=== PATIENT | male | born 1980 | race Caucasian/White ===

== ENCOUNTER 2016-09-21 15:00 | Inpatient (IN) | payer OTHER ==
--- NOTE | ~2016-09-21 | PN ---
Unit #: [id number] #: [id number] Patient: RUBY SEVILLA [id number] [facility] [address] [place] [address] [id number] I MR#: [id number] NAME: RUBY SEVILLA ROOM: P185 Age: 36 Sex: M Admission Date: 09/21/2016 : 1980 Attending Physician: Bartolo Perez M.D. Admitting Physician: Bartolo Perez M.D. Primary Care Physician: Primary Care Physician Aida GUSTAFSON PROGRESS NOTES DATE September 22, 2016 DISCUSSION Mr. Sevilla is a 36-year-old white male, with mood disorder and substance abuse, who was seen today and chart was reviewed and the case was discussed with the staff. He has been anxious, withdrawn, and rather seclusive to himself. Meanwhile, he has been cooperative with the treatment recommendations and he has been taking the medications and tolerating them fairly well with no reported side effects. MENTAL STATUS EXAMINATION Young white male, who was casually dressed with fair personal hygiene and appears to be in no acute distress or discomfort. He was awake and alert on interaction with intact orientation. His mood is anxious with a congruent affect. His speech is slow and goal-directed. He denies any suicidal or homicidal ideations, and also denies any auditory or visual hallucinations. His insight and judgment remain slightly impaired. TREATMENT PLAN 1. We will continue him on his current medications and treatment protocol, and will monitor his response to the medications, and make further adjustments as needed. 2. We will continue to followup. Dictated by... Dariela Duvall/chiqui TD: 09/22/2016 11:46 JOB #: [id number] Unit #: [id number] #: [id number] Patient: RUBY SEVILLA PROGRESS NOTES Page 1 of 1 X Bartolo Perez MD PROGRESS NOTE
--- NOTE | ~2016-09-21 | PN ---
Unit #: [id number] #: [id number] Patient: RUBY SEVILLA [id number] [facility] [address] [place] [address] [id number] I MR#: [id number] NAME: RUBY SEVILLA ROOM: P186 Age: 36 Sex: M Admission Date: 09/21/2016 : 1980 Attending Physician: Bartolo Perez M.D. Admitting Physician: Bartolo Perez M.D. Primary Care Physician: Primary Care Physician Aida GUSTAFSON PROGRESS NOTES DATE 09/23/2016 DISCUSSION Mr. Sevilla is a 36-year-old white male with substance abuse and mood disorder who was seen today and chart was reviewed and case was discussed with the staff. He seemed to be seclusive to himself and anxious and withdrawn. Meanwhile, he has been cooperative with treatment recommendations and has been taking medications and tolerating them fairly well with no reported side effects. MENTAL STATUS EXAMINATION Young white male who was casually dressed with fair personal hygiene and appears to be in no acute distress or discomfort. He was awake and alert on interaction with intact orientation. His mood was anxious with congruent affect. He reports having suicidal ideations but denies any homicidal ideation. His insight and judgement remains slightly impaired. TREATMENT PLAN 1. Will continue his current medications and treatment protocol. Will monitor his response to the medications and make further adjustments as needed. 2. Will continue to follow up. Dictated by... Dariela Duvall/stephon TD: 09/23/2016 15:48 JOB #: [id number] Unit #: [id number] #: [id number] Patient: RUBY SEVILLA PROGRESS NOTES Page 1 of 1 X Bartolo Perez MD X PROGRESS NOTE
--- NOTE | ~2016-09-21 | HP ---
Unit #: [id number] #: [id number] Patient: HORACIO SEVILLA [id number] [place] [address] [id number] I MR#: [id number] NAME: HORACIO SEVILLA ROOM: P186 Age: 36 Sex: M Admission Date: 09/21/2016 : 1980 Attending Physician: Bartolo Perez M.D. Admitting Physician: Bartolo Perez M.D. Primary Care Physician: Primary Care Physician No HISTORY AND PHYSICAL HISTORY OF PRESENT ILLNESS Horacio is a 36 year old admitted to [facility] because of his abuse of alcohol. He is detoxing. PAST MEDICAL HISTORY 1. Long history of alcohol abuse. 2. 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 PAST SURGICAL HISTORY Nothing reported. ALLERGIES Penicillin. SOCIAL HISTORY Smokes 1 pack per day. Denies alcohol. Admits to a history of poly-illicit substance abuse. FAMILY HISTORY Medically noncontributory. REVIEW OF SYSTEMS CONSTITUTIONAL: No fever or chills. HEENT: Denies any sore throat, ear pain or runny nose. CARDIOVASCULAR: Denies chest pain, irregular heart rhythm or palpitations. CHEST: Denies shortness of breath or cough. No hemoptysis. GASTROINTESTINAL: Denies nausea, vomiting, diarrhea or chronic constipation. ENDOCRINE: Denies history of increased thirst or urination. No recent significant weight loss or gain. GENITOURINARY: Denies dysuria, frequency, or hematuria. SKIN: Denies any rashes. HEMATOLOGIC: Denies history of increased bleeding or bruising. MUSCULOSKELETAL: Denies any hot, swollen joints. No generalized muscle pain. NEUROLOGIC: Denies problems with vision or speech. No frequent, severe headaches. No numbness, tingling or weakness in any extremities. Denies loss of bladder or bowel control. CURRENT MEDICATIONS Detox protocol. Unit #: [id number] #: [id number] Patient: HORACIO SEVILLA PHYSICAL EXAMINATION GENERAL: Alert, well-nourished, in no apparent distress. VITAL SIGNS: Blood pressure 120/70, heart rate 70, respirations 16, temperature 98.6. WEIGHT: 220. HEIGHT: 6 feet 0 inches. SKIN: Warm and dry without rash or lesion. HEENT: Normocephalic. TMs not viewed. Oral and nasal passages clear. Conjunctivae clear. PERRLA. EOMs intact. NECK: Supple without lymphadenopathy or thyromegaly. HEART: Regular rate and rhythm without murmur. LUNGS: Clear. ABDOMEN: Soft, nontender. : Not done. EXTREMITIES: No evidence of cyanosis, clubbing or edema. Moves all without focal deficit. NEUROLOGICAL: Grossly within normal limits. Cranial Nerves: II: Visual santoro are intact. III, IV AND : Extraocular movements are intact. Pupils are equal, round and reactive to light. V: Facial sensation is grossly normal. VII: Facial movements and expression are normal. VIII: Auditory acuity grossly intact. IX, X: Uvula is midline. Phonation is normal. XI: Patient shrugs shoulders and turns head normally. XII: Tongue protrudes in the midline. Sensory and Motor Function: Sensory and motor sensation is grossly normal. Motor: moves all extremities well. Coordination: Gait is normal. Deep Tendon Reflexes: Intact. IMPRESSION Psychiatric admission. RECOMMENDATIONS PSYCHIATRIC: Per psychiatrist. MEDICAL: See no contraindications to participate in facility's activities. MEDICAL PROGNOSIS Good. MEDICAL CONDITION Stable. Dictated by... Juan FrazierAPhoenix. for Dariela Ragland/stephon TD: 09/22/2016 16:20 JOB #: [id number] Unit #: [id number] #: [id number] Patient: HORACIO SEVILLA HISTORY AND PHYSICAL Page 1 of 1 X Marce Allan HISTORY AND PHYSICAL
--- NOTE | ~2016-09-21 | PA ---
Unit #: [id number] #: [id number] [facility]AREKH [id number] [facility] [place] [address] [id number] I MR#: [id number] NAME: RUBY PAREKH ROOM: P185 Age: 36 Sex: M Admission Date: 09/21/2016 : 1980 Date of Assessment: 09/21/2016 Attending Physician: Bartolo Perez M.D. Admitting Physician: Bartolo Perez M.D. Primary Care Physician: Primary Care Physician No PSYCHIATRIC ASSESSMENT DATE OF SERVICE 09/21/2016. IDENTIFYING DATA Mr. Parekh is a 36-year-old single white male, who is a resident of [place], [place] and was referred to us from [facility] on a voluntary basis. CHIEF COMPLAINT "I relapsed 2 weeks ago and I have been drinking a fifth of whiskey a day." HISTORY OF PRESENT ILLNESS Mr. Parekh is a 36-year-old white male with long history of alcohol dependence, who came to the emergency room with a blood alcohol level of 0.08 and a CIWA score of 11, reporting that he was sober for 8 months, but then he ended up relapsing couple of weeks ago and has been drinking a fifth of whiskey a day and has been having suicidal thoughts today with a plan to hang himself and does report increasing depression, anxiety, irritability, restlessness, feelings of hopelessness and helplessness, and suicidal ideations with intent and plan. He reports that he feels depressed for the past couple of months with an increase in the past month and reports suicidal ideations and feelings of hopelessness and helplessness, and that he has attempted suicide in the past by attempting to hang himself and as such, was seen to be a significant threat to himself and therefore, recommendation for inpatient level of care for safety and stabilization was made and the patient was transferred to us. SUBSTANCE ABUSE HISTORY The patient reports extensive history of substance abuse including alcohol, cocaine, acid, opioids, and amphetamines, however, currently he reports alcohol to be his drug of choice and has been drinking a fifth of whiskey on daily basis plus some beers. PAST PSYCHIATRIC HISTORY The patient has a [facility]. Review of the medical records indicate that currently he is not active in any treatment program, is not seeing a psychiatrist, and is not taking any psychotropic medications. PAST MEDICAL HISTORY No acute or chronic medical illnesses. ALLERGIES Unit #: [id number] #: [id number] Patient: RUBY PAREKH. PERSONAL AND SOCIAL HISTORY A 36-year-old white male, who reports that he is single, unemployed, and essentially homeless and has poor social support system. MENTAL STATUS EXAMINATION Young white male, who was casually dressed with fair personal hygiene, appears to be in no acute distress or discomfort. He was awake and alert on interaction with intact orientation to time, place, and person. His mood was anxious with congruent affect. His speech was slow and goal directed. He reports having suicidal ideations, but denies any homicidal ideations, and also denies any auditory or visual hallucinations. His insight and judgment remain significantly impaired. DIAGNOSTIC IMPRESSION Psychiatric: Major depressive disorder, recurrent, moderate, without psychotic features; alcohol dependence, moderate, and acute withdrawals. Medical: None. Stressors: Mild psychosocial stressors. TREATMENT PLAN 1. The patient has presented with history of substance abuse and mood disorder, and has been decompensating and will need inpatient hospitalization for detoxification, safety, and stabilization. We will start him on detox protocol. We will closely monitor for any worsening withdrawal symptoms. 2. Supportive therapy was provided to the patient. 3. Safe, structured, and nourishing environment will be reported. ESTIMATED LENGTH OF STAY 5 to 7 days. ABILITY TO HELP SELF Limited. WILLINGNESS TO HELP SELF The patient appears to be willing to help self. STRENGTHS 1. Communicative. 2. Cooperative. PROBLEMS 1. Chronic dysphoric symptoms. 2. Poor social support system. DISCHARGE CRITERIA This will be contingent upon the patient's ability to show resolution of his depression and anxiety and his ability to stay safe and sober, particularly after discharge from the hospital. Dictated by... Dariela Duvall/alison Unit #: [id number] #: [id number] Patient: RUBY PAREKH TD: 09/22/2016 06:45 JOB #: [id number] PSYCHIATRIC ASSESSMENT Page 1 of 1 X Bartolo Perez MD PSYCHIATRIC ASSESSMENT
--- NOTE | ~2016-09-21 | DS ---
Unit #: [id number] #: [id number] [facility]: [facility] [id number] [facility] [address] [place] [address] [id number] I MR#: [id number] NAME: RUBY SEVILLA ROOM: [facility] Age: 36 Sex: M Admission Date: 09/21/2016 : 1980 Discharge Date: 09/26/2016 Attending Physician: Bartolo Perez M.D. Primary Care Physician: Primary Care Physician No DISCHARGE SUMMARY IDENTIFYING DATA Mr. Sevilla is a 36-year-old single white male who is a resident of [place], [place] and was referred to us from [facility] on a voluntary basis. DISCHARGE DIAGNOSES Psychiatric: Major depressive disorder, recurrent, moderate, without psychotic features; alcohol dependence, moderate and acute withdrawals. Medical: None. Stressors: Moderate psychosocial stressors. HISTORY OF PRESENT ILLNESS Please see initial psychiatric evaluation for details. PAST PSYCHIATRIC HISTORY Please see initial psychiatric evaluation for details. PAST MEDICAL HISTORY Please see initial psychiatric evaluation for details. HOSPITAL COURSE The patient was admitted to the adult chemical dependency unit at [facility] and was oriented to the hospital environment. Routine p.r.n. medications were initiated, and he was started back on his home medications and medications were adjusted and he was closely monitored. He was taking the medications regularly and was tolerating them fairly well and was able to come out of the detox without any complications and was willing to continue treatment on an outpatient basis and was denying any suicidal or homicidal ideations and was not seen to be a danger to self or anyone else and was not meeting criteria for further inpatient psychiatric treatment, and as such, it was decided that he will be discharged home and will continue treatment on an outpatient basis. DISCHARGE MEDICATIONS None. DISCHARGE CONDITION Stable. PROGNOSIS Fair. Dictated by... Unit #: [id number] #: [id number] Patient: RUBY SEVILLA Dariela Duvall/alison TD: 09/26/2016 22:44 JOB #: [id number] DISCHARGE SUMMARY Page 1 of 1 X Bartolo Perez MD X DISCHARGE SUMMARY
--- NOTE | ~2016-09-21 | PN ---
Unit #: [id number] #: [id number] Patient: RUBY SEVILLA [id number] [facility] [address] [place] [address] [id number] I MR#: [id number] NAME: RUBY SEVILLA ROOM: P186 Age: 36 Sex: M Admission Date: 09/21/2016 : 1980 Attending Physician: Bartolo Perez M.D. Admitting Physician: Bartolo Perez M.D. Primary Care Physician: Primary Care Physician Aida LYMAN NOTES DATE OF SERVICE: 09/25/2016 SUBJECTIVE Mr. Sevilla is a 36-year-old white male, who was seen today and chart was reviewed and case was discussed with the staff. He has been anxious, withdrawn, rather seclusive to himself. Meanwhile, he has been cooperative with treatment recommendations and has been taking medications and tolerating them fairly well with no reported side effects. MENTAL STATUS EXAMINATION Young white male who was casually dressed with fair personal hygiene, appears to be in no acute distress or discomfort. He was awake and alert on interaction with intact orientation. His mood was anxious with a congruent affect. He denies any suicidal or homicidal ideations. His insight and judgment remain slightly impaired. TREATMENT PLAN We will continue on his current treatment protocol. We will monitor his response and make further adjustments as needed. Dictated by... Dariela Duvall/alison TD: 09/27/2016 01:37 JOB #: [id number] [facility] PROGRESS NOTES Page 1 of 1 X Bartolo Perez MD PROGRESS NOTE
--- NOTE | ~2016-09-21 | PN ---
Unit #: [id number] #: [id number] Patient: RUBY PAREKH [id number] [facility] [address] [place] [address] [id number] I MR#: [id number] NAME: RUBY PAREKH ROOM: [facility] Age: 36 Sex: M Admission Date: 09/21/2016 : 1980 Attending Physician: Bartolo Perez M.D. Admitting Physician: Bartolo Perez M.D. Primary Care Physician: Primary Care Physician Aida LYMAN NOTES DATE OF SERVICE 09/24/2016 DISCUSSION Mr. Parekh is a 36-year-old white male who was seen today. Chart was reviewed and case was discussed with the staff. Her has been anxious, withdrawn, and seclusive to himself, and appears to be in some distress and discomfort. Meanwhile, he has been cooperative with his treatment recommendations and has been taking the medications and tolerating them fairly well with no reported side effects. MENTAL STATUS EXAMINATION Young white male who is casually dressed with fair personal hygiene, appears to be in no acute distress or discomfort. The patient was awake and alert on interaction with intact orientation. His mood is anxious with congruent affect. He denies any suicidal or homicidal ideations. His insight and judgment remain slightly impaired. TREATMENT PLAN 1. We will continue him on his current medications and treatment protocol. We will monitor his response to the medications and make further adjustments as needed. 2. We will continue to follow up. Dictated by... Bartolo Perez M.D. IAA/jimmyg TD: 09/24/2016 13:40 JOB #: [id number] Unit #: [id number] #: [id number] Patient: RUBY PAREKH PROGRESS NOTES Page 1 of 1 X Bartolo Perez MD PROGRESS NOTE
[2016-09-22 10:22] LABS: BASOPHIL% 0.4 % (0-2.5); EOSINOPHIL# 0.1 X10e3 (0-0.7); EOSINOPHIL% 2.2 % (0.0-7.0); HEMATOCRIT 45.1 % (38.0-50.0); HEMOGLOBIN 15.2 gm/dL (13.0-16.0); LYMPHOCYTE# 2.4 X10e3 (1.0-3.5); LYMPHOCYTE% 39.2 % (17.0-45.0); MEAN CELL VOLUME 90.2 FL (83-96); MEAN CORPUSCULAR HEMOGLOBIN 30.5 PG (28-34); MEAN CORPUSCULAR HGB CONC 33.7 g/dL (30-36); MEAN PLATELET VOLUME 8.3 FL (6.5-11.5); MONOCYTE# 0.6 X10e3 (0-1.0); MONOCYTE% 9.2 % (3.0-12.0); PLATELET COUNT 207 X10e3 (140-420); RED CELL DISTRIBUTION WIDTH 12.8 % (11.0-15.5); WHITE BLOOD COUNT 6.1 X10e3 (4.0-10.5)
[2016-09-22 10:23] LABS: URINE APPEARANCE TURBID; URINE BILIRUBIN NEG (NEG); URINE BLOOD NEG (NEG); URINE COLOR YELLOW; URINE GLUCOSE NEG (NEG); URINE KETONE 1+ (NEG); URINE LEUKOCYTE ESTERASE NEG (NEG); URINE NITRATE NEG (NEG); URINE PH 5.5 (5-8); URINE PROTEIN TRACE (NEG); URINE SPECIFIC GRAVITY 1.029 (1.003-1.035)
[2016-09-22 10:26] LABS: ALBUMIN SERUM 3.9 g/dL (3.5-5.0); BILIRUBIN,TOTAL 1.4 mg/dL (0.2-2.0); CALCIUM SERUM 9.2 mg/dL (8.4-10.2); GLOM FILT RATE Estimated 97.8 mL/min (>60); POTASSIUM 3.9 mmol/L (3.5-5.1); PROTEIN TOTAL SERUM 6.5 g/dL (6.0-8.3)
[2016-09-22 10:29] LABS: DIFF IND NO
[2016-09-22 11:02] LABS: AMPHETAMINE NEG (NEG); BARBITURATES NEG (NEG); BENZODIAZEPINES NEG (NEG); COCAINE POS (NEG); MARIJUANA NEG (NEG); OPIATES NEG (NEG); TRICYCLIC ANTIDEPRESSANTS NEG (NEG); U METHADONE NEG (NEG)
== END 2016-09-26 09:30 | disposition home or self-care (01) | DRG 885 ==
LOC: P1E 17:01
PROVIDERS: Psychiatry & Neurology Psychiatry
PROC: HZ2ZZZZ Detoxification Services for Substance Abuse Treatment (ICD-10-PCS; principal; 2016-09-21)
DX: F33.1 Major depressive disorder, recurrent, moderate (principal); F10.239 Alcohol dependence with withdrawal, unspecified; Z88.0 Allergy status to penicillin
CPT/HCPCS: 80053; 80307; 81003; 85025; 86592

== ENCOUNTER 2016-11-15 18:32 | Inpatient (IN) | payer OTHER ==
[~2016-11-15] VITALS: Ht 182.9 cm; Wt 93.9 kg
--- NOTE | ~2016-11-15 | PA ---
Unit #: [id number] #: [id number] Patient: [facility]AREKH [id number] [facility] [place] [address] [id number] I MR#: [id number] NAME: RUBY PAREKH ROOM: P186 Age: 36 Sex: M Admission Date: 11/15/2016 : 1980 Date of Assessment: Attending Physician: Bartolo Perez M.D. Admitting Physician: Bartolo Perez M.D. Primary Care Physician: Primary Care Physician No PSYCHIATRIC ASSESSMENT DATE OF SERVICE 11/16/2016. IDENTIFYING DATA Mr. Parekh is a 36-year-old, single, white male, who is a resident of [place], [place], and was transferred to us from [facility], where he presented with blood alcohol level of 0.092. CHIEF COMPLAINT "I've been drinking up to half a gallon of whiskey daily." HISTORY OF PRESENT ILLNESS Mr. Narayan is a 36-year-old white male, who was self referred to the hospital and upon presentation, he reports that he has been drinking heavy this past week and has been drinking up to half a gallon of whiskey on daily basis and "2 days ago, I tried to hang myself and it did not work. Today at home, my sister talked to me to come into the emergency room. I cannot handle life anymore. I want to ." He reports he lost his mother over a year ago and things have been hard and that he has been depressed and does endorse increasing feelings of hopelessness and helplessness, disturbed sleep and appetite, and suicidal ideations and as such, recommendation for inpatient level of care for safety and stabilization was made and patient was transferred to us. SUBSTANCE ABUSE HISTORY The patient reports extensive history of substance abuse and dependence including alcohol, cocaine, acid, and opioids, and amphetamines, and currently alcohol has been his drug of choice and reports that he has been drinking ever since he was 20 years old and currently has been drinking up to half a gallon a day. PAST PSYCHIATRIC HISTORY The patient reports history of various inpatient chemical [facility] and [facility] and review of the medical records indicate that currently he is not active in any treatment program, is not seeing a psychiatrist, and is not taking any psychotropic medications. PAST MEDICAL HISTORY No acute or chronic medical illnesses. ALLERGIES Unit #: [id number] #: [id number] Patient: RUBY PAREKH. PERSONAL AND SOCIAL HISTORY A 36-year-old white male, who reports that he is single, unemployed, and lives alone and has poor social support system. MENTAL STATUS EXAMINATION Young white male, who was casually dressed with fair personal hygiene, appears to be in no acute distress or discomfort. He was awake and alert on interaction with intact orientation to time, place, and person. His mood was anxious and depressed with a congruent affect. His speech was slow and restricted in content. His thought processes were disorganized with some looseness of associations and flight of ideas. His insight and judgment remain significantly impaired. DIAGNOSTIC IMPRESSION Psychiatric: Major depressive disorder, recurrent, moderate, without psychotic features; alcohol dependence, moderate and acute withdrawals. Medical: None. Stressors: Moderate psychosocial stressors. TREATMENT PLAN 1. The patient has presented with a history of substance abuse and mood disorder, and has been decompensating and will need inpatient hospitalization for safety and stabilization. We will start him back on his home medications. We will adjust the medications and monitor response. 2. Supportive therapy was provided to the patient. 3. Safe, structured, and nourishing environment will be reported. ESTIMATED LENGTH OF STAY 4 to 5 days. ABILITY TO HELP SELF Limited. WILLINGNESS TO HELP SELF The patient appears to be willing to help self. STRENGTHS 1. Communicative. 2. Cooperative. PROBLEMS 1. Chronic dysphoric symptoms. 2. Poor social support system. DISCHARGE CRITERIA This will be contingent upon the patient's ability to show resolution of his depression and anxiety and his ability to stay safe to himself, particularly after discharge from the hospital. Dictated by... Bartolo Perez M.D. Unit #: [id number] #: [id number] Patient: RUBY PAREKH COLTON/modl TD: 11/16/2016 06:52 JOB #: [id number] PSYCHIATRIC ASSESSMENT Page 1 of 1 X Bartolo Perez MD PSYCHIATRIC ASSESSMENT
--- NOTE | ~2016-11-15 | PN ---
Unit #: [id number] #: [id number] Patient: RUBY SEVILLA [id number] [facility] [address] [place] [address] [id number] I MR#: [id number] NAME: RUBY SEVILLA ROOM: 86 Age: 36 Sex: M Admission Date: 11/15/2016 : 1980 Attending Physician: Bartolo Perez M.D. Admitting Physician: Bartolo Perez M.D. Primary Care Physician: Primary Care Physician Aida LYMAN NOTES DATE November 20, 2016 DISCUSSION Mr. Sevilla is a 36-year-old white male, who was seen today and chart was reviewed and the case was discussed with the staff. He has been anxious, withdrawn, and seclusive to himself. Meanwhile, he has been cooperative with the treatment recommendations and he has been taking the medications, and tolerating them fairly well with no reported side effects. MENTAL STATUS EXAMINATION Young white male, who was casually dressed with fair personal hygiene and appears to be in no acute distress or discomfort. He was awake and alert on interaction with intact orientation. His mood is anxious with a congruent affect. He denies any suicidal or homicidal ideations. His insight and judgment remain slightly impaired. TREATMENT PLAN 1. We will continue him on his current medications and treatment protocol, and will monitor his response to the medications, and make further adjustments as needed. 2. We will continue to followup. Dictated by... Dariela Duvall/chiqui TD: 11/21/2016 09:19 JOB #: [id number] Unit #: [id number] #: [id number] Patient: RUBY SEVILLA PROGRESS NOTES Page 1 of 1 X Bartolo Perez MD PROGRESS NOTE
--- NOTE | ~2016-11-15 | PN ---
Unit #: [id number] #: [id number] Patient: RUBY PAREKH [id number] [facility] [address] [place] [address] [id number] MR#: [id number] NAME: RUBY PAREKH ROOM: P186 Age: 36 Sex: M Admission Date: 11/15/2016 : 1980 Attending Physician: Bartolo Perez M.D. Admitting Physician: Bartolo Perez M.D. Primary Care Physician: Primary Care Physician Aida GUSTAFSON PROGRESS NOTES DATE 11/19/2016 DISCUSSION Mr. Parekh is a 36-year-old white male with mood disorder and substance abuse who was seen today and chart was reviewed and case was discussed with the staff. He has been anxious, withdrawn, depressed and rather seclusive to himself and reports not feeling good and has been seclusive to himself. Meanwhile, he has been taking medications and tolerating them fairly well with no reported side effects. MENTAL STATUS EXAMINATION Young white male who was casually dressed with fair personal hygiene and appears to be in no acute distress or discomfort. He was awake and alert with intact orientation. His mood was anxious with congruent affect. He denies any suicidal or homicidal ideations. His insight and judgement remains slightly impaired. TREATMENT PLAN 1. Will continue on his current treatment protocol. Will monitor his response to the medications and make further adjustments as needed. 2. Will continue to follow up. Dictated by... Bartolo Perez M.D. IAA/javedh TD: 11/19/2016 21:24 JOB #: [id number] Unit #: [id number] #: [id number] Patient: RUBY PAREKH PROGRESS NOTES Page 1 of 1 X Bartolo Perez MD X PROGRESS NOTE
--- NOTE | ~2016-11-15 | PN ---
Unit #: [id number] #: [id number] Patient: RUBY PAREKH [id number] [facility] [address] [place] [address] [id number] MR#: [id number] NAME: RUBY PAREKH ROOM: 86 Age: 36 Sex: M Admission Date: 11/15/2016 : 1980 Attending Physician: Bartolo Perez M.D. Admitting Physician: Bartolo Perez M.D. Primary Care Physician: Primary Care Physician Aida LYMAN NOTES DATE OF SERVICE 11/18/2016 DISCUSSION Mr. Parekh is a 36-year-old white male with was seen today. Chart was reviewed and case was discussed with the staff. He has been anxious, withdrawn, and in distress and discomfort as he goes through detox. He reports feeling increase in depression and feelings of hopelessness and helplessness. Meanwhile, he has been taking the medications and tolerating them fairly well with no reported side effects. MENTAL STATUS EXAMINATION Young white male who is casually dressed with fair personal hygiene, appears to be in no acute distress or discomfort. The patient was awake and alert with intact orientation. His mood is anxious with congruent affect. He denies any suicidal or homicidal ideations. His insight and judgment remain slightly impaired. TREATMENT PLAN 1. We will continue him on his current medications and treatment protocol. We will monitor his response to the medications and make further adjustments as needed. 2. We will continue to follow up. Dictated by... Bartolo Perez M.D. IAA/bzg TD: 11/18/2016 10:30 JOB #: [id number] Unit #: [id number] #: [id number] Patient: RUBY PAREKH PROGRESS NOTES Page 1 of 1 X Bartolo Perez MD PROGRESS NOTE
--- NOTE | ~2016-11-15 | DS ---
Unit #: [id number] #: [id number] Patient: RUBY SEVILLA [id number] [facility] [address] [place] [address] [id number] MR#: [id number] NAME: RUBY SEVILLA ROOM: [facility] Age: 36 Sex: M Admission Date: 11/15/2016 : 1980 Discharge Date: 11/21/2016 Attending Physician: Bartolo Perez M.D. Primary Care Physician: Primary Care Physician No DISCHARGE SUMMARY IDENTIFYING DATA Mr. Sevilla is a 36-year-old single white male, who is a resident of [place], [place], and was transferred to us from [facility], where he presented with blood alcohol level of 0.092 and a chief complaint of "I've been drinking up to half a gallon of whiskey on daily basis." DISCHARGE DIAGNOSES Psychiatric: Major depressive disorder, recurrent, moderate, without psychotic features; alcohol dependence, moderate and acute withdrawals. Medical: None. Stressors: Moderate psychosocial stressors. HISTORY OF PRESENT ILLNESS Please see initial psychiatric evaluation for details. PAST PSYCHIATRIC HISTORY Please see initial psychiatric evaluation for details. PAST MEDICAL HISTORY Please see initial psychiatric evaluation for details. HOSPITAL COURSE The patient was admitted to the adult chemical dependency unit at [facility] and was oriented to the hospital environment. Routine p.r.n. medications were initiated, and he was started back on his home medications and medications were adjusted and he was closely monitored. He was taking the medications regularly and was tolerating them fairly well and was able to come out of the detox without any complications and was wanting to go home and was willing to continue treatment on an outpatient basis. He was denying any suicidal or homicidal ideations and was not seen to be a danger to self or anyone else, and as such, it was decided that he will be discharged home and will continue treatment on an outpatient basis. DISCHARGE MEDICATIONS None. DISCHARGE CONDITION Stable. PROGNOSIS Fair. Unit #: [id number] #: [id number] Patient: RUBY SEVILLA Dictated by... Dariela Duvall/alison TD: 11/22/2016 23:48 JOB #: [id number] DISCHARGE SUMMARY Page 1 of 1 X Bartolo Perez MD DISCHARGE SUMMARY
--- NOTE | ~2016-11-15 | HP ---
Unit #: [id number] #: [id number] Patient: HORACIO SEVILLA [id number] [place] [address] [id number] MR#: [id number] NAME: HORACOI SEVILLA ROOM: 86 Age: 36 Sex: M Admission Date: 11/15/2016 : 1980 Attending Physician: Bartolo Perez M.D. Admitting Physician: Bartolo Perez M.D. Primary Care Physician: Primary Care Physician No HISTORY AND PHYSICAL HISTORY OF PRESENT ILLNESS Horacio is a 36-year-old male admitted on 11/15/2016 to [facility] for detox from alcohol. PAST MEDICAL HISTORY None. PAST SURGICAL HISTORY None. SOCIAL HISTORY He smokes one pack of cigarettes daily. Drinks up to a half gallon of whiskey daily and does report a history of polysubstance abuse. He is currently single and homeless. FAMILY HISTORY Noncontributory. REVIEW OF SYSTEMS CONSTITUTIONAL: No fever or chills. HEENT: Denies any sore throat, ear pain or runny nose. CARDIOVASCULAR: Denies chest pain, irregular heart rhythm or palpitations. CHEST: Denies shortness of breath or cough. No hemoptysis. GASTROINTESTINAL: Denies nausea, vomiting, diarrhea or chronic constipation. ENDOCRINE: Denies history of increased thirst or urination. No recent significant weight loss or gain. GENITOURINARY: Denies dysuria, frequency, or hematuria. SKIN: Denies any rashes. HEMATOLOGIC: Denies history of increased bleeding or bruising. MUSCULOSKELETAL: Denies any hot, swollen joints. No generalized muscle pain. NEUROLOGIC: Denies problems with vision or speech. No frequent, severe headaches. No numbness, tingling or weakness in any extremities. Denies loss of bladder or bowel control. CURRENT MEDICATIONS None. ALLERGIES Penicillin. Unit #: [id number] #: [id number] Patient: HORACIO SEVILLA PHYSICAL EXAMINATION GENERAL: Alert, oriented, in no acute distress. VITAL SIGNS: Blood pressure 138/94, heart rate 67, respirations 18, temperature 97.9. HEIGHT: 6 foot 0. WEIGHT: 207 pounds. SKIN: Warm and dry without rash or lesion. HEENT: Normocephalic. TMs not viewed. Oral and nasal passages clear. Conjunctivae clear. PERRLA. EOMs intact. NECK: Supple without lymphadenopathy or thyromegaly. HEART: Regular rate and rhythm without murmur. LUNGS: Clear. ABDOMEN: Soft, nontender, without masses or hepatosplenomegaly. : Not done. EXTREMITIES: No evidence of cyanosis, clubbing or edema. Moves all without focal deficit. NEUROLOGICAL: Grossly within normal limits. Cranial Nerves: II: Visual santoro are intact. III, IV AND : Extraocular movements are intact. Pupils are equal, round and reactive to light. V: Facial sensation is grossly normal. VII: Facial movements and expression are normal. VIII: Auditory acuity grossly intact. IX, X: Uvula is midline. Phonation is normal. XI: Patient shrugs shoulders and turns head normally. XII: Tongue protrudes in the midline. Sensory and Motor Function: Sensory and motor sensation is grossly normal. Motor: moves all extremities well. Coordination: Gait is normal. Deep Tendon Reflexes: Intact. IMPRESSION Psychiatric admission. RECOMMENDATIONS Psychiatric, per psychiatrist. MEDICAL: I see no contraindications to participating in facility's activities. MEDICAL PROGNOSIS Good. MEDICAL CONDITION Stable. Dictated by... Miguelina Salmon/juan TD: 11/17/2016 02:00 JOB #: [id number] Unit #: [id number] #: [id number] Patient: HORACIO SEVILLA HISTORY AND PHYSICAL Page 1 of 1 X SANDIE GEORGE APRN X HISTORY AND PHYSICAL
--- NOTE | ~2016-11-15 | PN ---
Unit #: [id number] #: [id number] Patient: RUBY SEVILLA [id number] [facility] [address] [place] [address] [id number] I MR#: [id number] NAME: RUBY SEVILLA ROOM: 86 Age: 36 Sex: M Admission Date: 11/15/2016 : 1980 Attending Physician: Bartolo Perez M.D. Admitting Physician: Bartolo Perez M.D. Primary Care Physician: Primary Care Physician Aida LYMAN NOTES DATE November 17, 2016 DISCUSSION Mr. Sevilla is a 36-year-old white male, who was seen today and chart was reviewed and the case was discussed with the staff. He has been anxious, withdrawn, and seclusive to himself. Meanwhile, he has been cooperative with the treatment recommendations and he has been taking the medications and tolerating them fairly well but reports still being in distress and discomfort, and appears to be going through detox. MENTAL STATUS EXAMINATION Young white male, who was casually dressed with fair personal hygiene and appears to be in no acute distress or discomfort. He was awake and alert on interaction with intact orientation. His mood is anxious with a congruent affect. He denies any suicidal or homicidal ideations, and also denies any auditory or visual hallucinations. His insight and judgment remain slightly impaired. TREATMENT PLAN 1. We will continue him on his current medications and treatment protocol, and will monitor his response to the medications, and make further adjustments as needed. 2. We will continue to followup. Dictated by... Dariela Duvall/chiqui TD: 11/17/2016 13:18 JOB #: [id number] Unit #: [id number] #: [id number] Patient: RUBY SEVILLA PROGRESS NOTES Page 1 of 1 X Bartolo Perez MD PROGRESS NOTE
[2016-11-16 10:02] LABS: ALBUMIN SERUM 4.1 g/dL (3.5-5.0); BASOPHIL% 0.4 % (0-2.5); BILIRUBIN,TOTAL 0.7 mg/dL (0.2-2.0); BUN/CREATININE RATIO 12.22; CREATININE SERUM 0.9 mg/dL (0.6-1.4); EOSINOPHIL# 0.2 X10e3 (0-0.7); EOSINOPHIL% 2.7 % (0.0-7.0); HEMATOCRIT 45.8 % (38.0-50.0); HEMOGLOBIN 15.8 gm/dL (13.0-16.0); LYMPHOCYTE# 2.4 X10e3 (1.0-3.5); LYMPHOCYTE% 33.1 % (17.0-45.0); MEAN CELL VOLUME 91.5 FL (83-96); MEAN CORPUSCULAR HEMOGLOBIN 31.4 PG (28-34); MEAN CORPUSCULAR HGB CONC 34.4 g/dL (30-36); MEAN PLATELET VOLUME 8.4 FL (6.5-11.5); MONOCYTE# 0.9 X10e3 (0-1.0); MONOCYTE% 12.2 % (3.0-12.0); NEUTROPHIL# 3.7 X10e3 (1.5-7.1); NEUTROPHIL% 51.6 % (40-75); PLATELET COUNT 191 X10e3 (140-420); POTASSIUM 4.2 mmol/L (3.5-5.1); PROTEIN TOTAL SERUM 6.6 g/dL (6.0-8.3); RED BLOOD COUNT 5.01 X10e (3.90-5.60); RED CELL DISTRIBUTION WIDTH 13.8 % (11.0-15.5); WHITE BLOOD COUNT 7.2 X10e3 (4.0-10.5)
[2016-11-16 10:15] LABS: DIFF IND NO
[2016-11-17 09:59] LABS: URINE APPEARANCE CLEAR; URINE BILIRUBIN NEG (NEG); URINE BLOOD NEG (NEG); URINE COLOR YELLOW; URINE GLUCOSE NEG (NEG); URINE KETONE NEG (NEG); URINE LEUKOCYTE ESTERASE NEG (NEG); URINE NITRATE NEG (NEG); URINE PROTEIN NEG (NEG); URINE SPECIFIC GRAVITY 1.007 (1.003-1.035); URINE UROBILINOGEN 0.2 MG/DL (NEG)
[2016-11-17 10:25] LABS: AMPHETAMINE NEG (NEG); BARBITURATES NEG (NEG); BENZODIAZEPINES NEG (NEG); COCAINE NEG (NEG); MARIJUANA NEG (NEG); OPIATES NEG (NEG); TRICYCLIC ANTIDEPRESSANTS NEG (NEG); U METHADONE NEG (NEG)
== END 2016-11-21 09:35 | DRG 885 ==
LOC: P1E 21:41
PROVIDERS: Psychiatry & Neurology Psychiatry
PROC: HZ2ZZZZ Detoxification Services for Substance Abuse Treatment (ICD-10-PCS; principal; 2016-11-15)
DX: F33.1 Major depressive disorder, recurrent, moderate (principal); R45.851 Suicidal ideations; F10.230 Alcohol dependence with withdrawal, uncomplicated; Z88.0 Allergy status to penicillin; F17.210 Nicotine dependence, cigarettes, uncomplicated; Z59.0 Homelessness
CPT/HCPCS: 80053; 80307; 81003; 85025; 86592